=== PATIENT | female | born 1950 | race Caucasian/White ===

== ENCOUNTER → 2017-08-25 | Outpatient (CLI) | payer OTHER | LOC: FIMAGING 09:05 | PROVIDERS: ATTEND Internal Medicine | DX: Z12.31 Encounter for screening mammogram for malignant neoplasm of breast (principal) | CPT/HCPCS: G0202 ==

== ENCOUNTER 2019-02-11 21:33 | Observation (INO) | payer OTHER ==
--- NOTE | 2019-02-11 21:54 | EDPHY ---
H & P Stated Complaint: difficulty swallowing Time Seen by Provider: 02/11/19 21:53 HPI/ROS: HPI CHIEF COMPLAINT: Trouble swallowing. Possible allergic reaction HISTORY OF PRESENT ILLNESS: 68-year-old female, presents emergency room with trouble swallowing. Patient states she was out in the yard all day today removing weeds, she noticed while she was in the yard she began having itching to her face and eyes. She presents to the emergency room stating that she is having trouble swallowing. She is able to swallow, has no trouble breathing upon arrival, but feels like there is something swollen in the throat. No fever. No drooling. No change in phonation. Past Medical History: Cerebral aneurysm with coil, hypertension Past Surgical History: Coil-cerebral Social History: Denies drugs alcohol tobacco. Family History: Noncontributory ROS REVIEW OF SYSTEMS: 10 Systems were reviewed and negative with the exception of the elements mentioned in the history of present illness. Exam Constitutional appears well nontoxic, triage nursing summary reviewed, vital signs reviewed, awake/alert. Eyes normal conjunctivae and sclera, EOMI, PERRLA. HENT posterior pharynx uvula is swollen appears to be uvulitis, no signs of infection, uvula is midline, no signs of [employer] RPA, no stridor, not drooling, no trismus no wheezing, normal inspection, atraumatic, moist mucus membranes, no epistaxis, neck supple/ no meningismus, no raccoon eyes. Respiratory clear to auscultation bilaterally, normal breath sounds, no respiratory distress, no wheezing. Cardiovascular rate normal, regular rhythm, no murmur, no edema, distal pulses normal. Gastrointestinal soft, non-tender, no rebound, no guarding, normal bowel sounds, no distension, no pulsatile mass. Genitourinary no CVA tenderness. Musculoskeletal no midline vertebral tenderness, full range of motion, no calf swelling, no tenderness of extremities, no meningismus, good pulses, neurovascularly intact. Skin pink, warm, & dry, no rash, skin atraumatic. Neurologic awake, alert and oriented x 3, AAOx3, moves all 4 extremities equally, motor intact, sensory intact, CN II-XII intact, normal cerebellar, normal vision, normal speech. Psychiatric normal mood/affect. Heme/Lymph/Immune no lymphadenopathy. Differential Diagnosis: Includes but is not limited to in a particular order allergic reaction, conjunctivitis, viral pharyngitis, strep pharyngitis, uvulitis, tracheitis, epiglottitis Medical Decision Making: Plan for this patient IV establishment, IV fluid bolus , IV Decadron, IV Benadryl IV Pepcid, basic labs and re-evaluate. CT soft tissue neck with IV contrast Re-evaluation: CT scan of the soft tissues of the neck with IV shows no abscess, however does show parapharyngeal swelling, epiglottis on the airway additionally epiglottis looks slightly swollen. Spoke with Dr. Mirza about this. Plan for admission to the ICU for close observation. Patient appears to be having allergic reaction 2356: Spoke with MARIAH Granado superintendent stations for ent, discussed the case. Agrees to consult/see the patient, agrees with current treatment plan. Will admit to ICU for close monitoring 2356: At this time the patient has no stridor, not drooling, has not had any further worsening symptoms. Will closely monitor. 0120AM: Patient here in emergency room having worsening stridor. Patient has been moved from ER room 4 to ER room 2. She has been given a 2nd dose of Decadron, ENT at bedside has scoped her and visualized airway edema that appears to be getting worse. I have set up for emergent intubation as well as emergent cric if need be. Also I have notified anesthesia in ENT. Plan will be to go to the operating room for anesthesia and intubation. If patient becomes unstable or needs emergent airway I will attempt in the patient here in the ER. Critical Care: Total Critical Care Time Spent Managing this Patient: 85 Minutes. This time was spent Exclusively with this patient. This Care was exclusive of procedures. The Organ System/life at risk was airway, respiratory. This Patient was in Critical Condition because respiratory compromise, airway edema, stridor 0144: Patient maintaining her airway, handling secretions, however will be brought to the operating room with anesthesia and ENT for urgent intubation. Dr. Reyes, at bedside with ENT, And Anesthesia. Source: Patient - Personal History Current Tetanus Diphtheria and Acellular Pertussis (TDAP): Yes - Medical/Surgical History Hx Asthma: No Hx Chronic Respiratory Disease: No Hx Diabetes: No Hx Cardiac Disease: No Hx Renal Disease: No Hx Cirrhosis: No Hx Alcoholism: No Hx HIV/AIDS: No Hx Splenectomy or Spleen Trauma: No Other PMH: HTN - Social History Smoking Status: Never smoked Constitutional: Initial Vital Signs Temperature (C) 36.7 C 02/11/19 21:40 Heart Rate 84 02/11/19 21:40 Respiratory Rate 16 02/11/19 21:40 Blood Pressure 193/114 H 02/11/19 21:40 O2 Sat (%) 94 02/11/19 21:40 O2 Delivery Mode Room Air Allergies/Adverse Reactions: codeine Allergy (Verified 07/08/14 18:24) Home Medications: Medication Instructions Recorded Aspirin [Aspirin 81mg (*)] 81 mg PO DAILY 02/12/19 C/E/Zn/Cu/OM3/DHA/EPA/LUT/ZEAX 1 each PO BID 02/12/19 [Preservision Areds 2 Softgel] Leflunomide [Arava 20 mg (*)] 20 mg PO DAILY 02/12/19 Naproxen Sodium [Aleve 220 MG (*)] 220 mg PO DAILY PRN 02/12/19 predniSONE 3 mg PO DAILY 02/12/19 amLODIPine BESYLATE [Norvasc 10 mg 10 mg PO DAILY #30 tab 02/13/19 (*)] predniSONE 40 mg PO AD #9 tablet 02/13/19 predniSONE [Prednisone] 10 mg PO DAILY #30 tablet 02/13/19 Medical Decision Making - Data Points Laboratory Results: Laboratory Results 02/11/19 22:47 02/11/19 22:05 Medications Given: Discontinued Medications Chlorhexidine Gluconate (Peridex) 15 ml PO BID [facility] Stop: 08/11/19 08:59 Last Admin: 02/13/19 08:54 Dose: 15 ml Dexamethasone (Decadron Injection) 10 mg IVP EDNOW ONE Stop: 02/11/19 22:04 Last Admin: 02/11/19 22:10 Dose: 10 mg Dexamethasone (Decadron Injection) 10 mg IVP ONCE ONE Stop: 02/12/19 01:13 Last Admin: 02/12/19 01:15 Dose: 10 mg Dexamethasone (Decadron Injection) 10 mg IVP EDNOW ONE Stop: 02/12/19 01:31 Last Admin: 02/12/19 04:13 Dose: 10 mg Dexamethasone (Decadron Injection) 10 mg IVP Q6HRS [facility] Stop: 08/11/19 05:59 Last Admin: 02/13/19 12:13 Dose: 10 mg Diphenhydramine HCl (Benadryl Injection) 25 mg IVP EDNOW ONE Stop: 02/11/19 22:04 Last Admin: 02/11/19 22:10 Dose: 25 mg Diphenhydramine HCl (Benadryl Injection) 25 mg IVP EDNOW ONE Stop: 02/12/19 00:15 Last Admin: 02/12/19 00:17 Dose: 25 mg Diphenhydramine HCl (Benadryl Injection) 12.5 mg IVP Q6H [facility] Stop: 08/11/19 05:59 Last Admin: 02/13/19 12:18 Dose: 12.5 mg Epinephrine (S-2) 0.5 ml IH EDNOW ONE Stop: 02/12/19 00:15 Last Admin: 02/12/19 00:17 Dose: 0.5 ml Fentanyl (Sublimaze) 25 mcg IV Q2H PRN PRN Reason: Pain, Severe Stop: 02/22/19 11:59 Last Admin: 02/12/19 22:06 Dose: 25 mcg Sodium Chloride (Ns) 1,000 mls @ 0 mls/hr IV EDNOW ONE; Wide Open PRN Reason: Protocol Stop: 02/11/19 22:04 Last Admin: 02/11/19 22:13 Dose: 1,000 mls Famotidine 20 mg/ Sodium (Chloride) 102 mls @ 408 mls/hr IV EDNOW ONE Stop: 02/11/19 22:17 Last Admin: 02/11/19 22:10 Dose: 102 mls Sodium Chloride (Ns) 1,000 mls @ 0 mls/hr IV ONCE ONE PRN Reason: Wide Open Stop: 02/11/19 22:04 Last Admin: 02/11/19 22:10 Dose: 1,000 mls Famotidine/Sodium Chloride (Pepcid 20 Mg (Premix)) 50 mls @ 200 mls/hr IV Q12HRS [facility] Stop: 08/11/19 08:59 Last Admin: 02/13/19 08:52 Dose: 50 mls Fentanyl/Sodium Chloride (Fentanyl 10 Mcg/Ml (Premix)) 100 mls @ 0 mls/hr IV CONT [facility]; Per Protocol PRN Reason: Protocol Stop: 02/22/19 03:07 Last Admin: 02/12/19 04:13 Dose: 100 mls Propofol (Diprivan 10 Mg/Ml (Premix)) 100 mls @ 0 mls/hr IV CONT [facility]; Per Protocol PRN Reason: Protocol Stop: 08/11/19 03:07 Last Admin: 02/13/19 00:05 Dose: 100 mls Lidocaine HCl (Lidocaine Hcl 4% Topical Solution) Confirm Administered Dose 50 ml .ROUTE .STK-MED ONE Stop: 02/12/19 02:00 Last Admin: 02/12/19 06:52 Dose: Not Given Methylprednisolone Sodium Succinate (Solu-Medrol) 125 mg IVP EDNOW ONE Stop: 02/12/19 00:15 Last Admin: 02/12/19 00:17 Dose: 125 mg Oxymetazoline HCl (Afrin Nasal Cherry) Confirm Administered Dose 30 sprays .ROUTE .STK-MED ONE Stop: 02/12/19 02:01 Last Admin: 02/12/19 04:14 Dose: Not Given Departure - Departure Disposition: [facility] Acute Clinical Impression: Allergic reaction Qualifiers: Encounter type: initial encounter Qualified Code(s): T78.40XA - Allergy, unspecified, initial encounter Angioedema Qualifiers: Encounter type: initial encounter Qualified Code(s): T78.3XXA - Angioneurotic edema, initial encounter Condition: Good
[2019-02-11] MEDS ORDERED: FAMOTIDINE 20 MG in NS 100 ML IV ONE (22:03)
[2019-02-11] MEDS ORDERED: NS 1,000 ML IV ONE ×2 (22:03)
[2019-02-11] MEDS ORDERED: DEXAMETHASONE 10 MG/ML VIAL IVP ONE (22:03)
[2019-02-11] MEDS ORDERED: IOPAMIDOL (ISOVUE-300) 100 ML BTL ONE (22:57)
[2019-02-11 23:04] LABS: PLATELET COUNT 67 10^3/uL (150-400)
[2019-02-12] MEDS ORDERED: EPINEPHrine RACEMIC INH 0.5 ML DEYVIAL IH ONE (00:14)
[2019-02-12] MEDS ORDERED: methylPREDNISolone SOD SUCC 125 MG/2 ML VIAL IVP ONE (00:14)
[2019-02-12] MEDS ORDERED: ACETAMINOPHEN 325 MG TAB PO PRN (00:17)
[2019-02-12] MEDS ORDERED: ONDANSETRON 4 MG/2 ML VIAL IVP PRN (00:17)
[2019-02-12] MEDS ORDERED: ONDANSETRON DISINTEGRATING 4 MG TAB PO PRN (00:17)
[2019-02-12] MEDS ORDERED: DEXAMETHASONE 10 MG/ML VIAL IVP ONE ×2 (01:12→01:30)
[2019-02-12] MEDS ORDERED: DEXAMETHASONE 10 MG/ML VIAL ONE (01:13)
--- NOTE | 2019-02-12 01:14 | PDGENHP ---
History and Physical - Chief Complaint Shortness of breath - History of Present Illness 68 yo F w/ hx of SAH and PMR presents with shortness of breath. The patient was working in her garden today pulling weeds. She was also using gasoline as a weed killer and thinks she used about a gallon. In the hours after she began to notice difficulty swallowing and breathing. As a result of this she came in to the ED. In the ED a CT scan demonstrated moderate, diffuse edema in the parapharyngeal soft tissues without significant airway compromise. During a period of observation in the ED, however, her work of breathing continues to increase despite aggressive medical therapy. She will be admitted to the ICU for close airway monitoring. Case discussed with ED physician Dr. Verdin; records reviewed and summarized above. History Information - Allergies/Home Medication List Allergies/Adverse Reactions: codeine Allergy (Verified 07/08/14 18:24) Home Medications: Leflunomide 02/11/19 [Last Taken Unknown] Prednisone 02/11/19 [Last Taken Unknown] I have personally reviewed and updated: family history, medical history - Past Medical History Additional medical history: SAH s/p coiling. PMR - Surgical History Additional surgical history: Coiling of ruptured aneurysm - Family History Positive for: diabetes type II - Social History Smoking Status: Never smoked Review of Systems Review of Systems: ROS: 10pt was reviewed & negative except for what was stated in HPI & below Physical Exam Physical Exam: Temp Pulse Resp BP Pulse Ox 36.7 C 72 20 197/112 H 97 02/11/19 21:40 02/12/19 00:43 02/12/19 00:43 02/12/19 00:43 02/12/19 00:43 O2 (L/minute) 2 Constitutional: appears nourished, uncomfortable Eyes: PERRL, EOMI Ears, Nose, Mouth, Throat: moist mucous membranes, other (Stridor noted) Cardiovascular: regular rate and rhythym, no murmur, rub, or gallop Respiratory: respiratory distress, other (Stridor noted) Gastrointestinal: normoactive bowel sounds, soft, non-tender abdomen Skin: warm, normal color Musculoskeletal: full muscle strength, no muscle tenderness Neurologic: AAOx3, CN II-XII Intact Psychiatric: interacting appropriately, not anxious Lab Data & Imaging Review 02/11/19 22:47 02/11/19 22:05 WBC 5.63 10^3/uL (3.80-9.50) 02/11/19 22:47 RBC 3.74 10^6/uL (4.18-5.33) L 02/11/19 22:47 Hgb 11.7 g/dL (12.6-16.3) L 02/11/19 22:47 Hct 35.8 % (38.0-47.0) L 02/11/19 22:47 MCV 95.7 fL (81.5-99.8) 02/11/19 22:47 MCH 31.3 pg (27.9-34.1) 02/11/19 22:47 MCHC 32.7 g/dL (32.4-36.7) 02/11/19 22:47 RDW 12.9 % (11.5-15.2) 02/11/19 22:47 Plt Count 67 10^3/uL (150-400) L 02/11/19 22:47 MPV 10.9 fL (8.7-11.7) 02/11/19 22:47 Neut % (Auto) 56.0 % (39.3-74.2) 02/11/19 22:47 Lymph % (Auto) 25.6 % (15.0-45.0) 02/11/19 22:47 [place] % (Auto) 15.5 % (4.5-13.0) H 02/11/19 22:47 Eos % (Auto) 1.8 % (0.6-7.6) 02/11/19 22:47 Baso % (Auto) 0.7 % (0.3-1.7) 02/11/19 22:47 Nucleat RBC Rel Count 0.0 % (0.0-0.2) 02/11/19 22:47 Absolute Neuts (auto) 3.16 10^3/uL (1.70-6.50) 02/11/19 22:47 Absolute Lymphs (auto) 1.44 10^3/uL (1.00-3.00) 02/11/19 22:47 Absolute Monos (auto) 0.87 10^3/uL (0.30-0.80) H 02/11/19 22:47 Absolute Eos (auto) 0.10 10^3/uL (0.03-0.40) 02/11/19 22:47 Absolute Basos (auto) 0.04 10^3/uL (0.02-0.10) 02/11/19 22:47 Absolute Nucleated RBC 0.00 10^3/uL (0-0.01) 02/11/19 22:47 Immature Gran % 0.4 % (0.0-1.1) 02/11/19 22:47 Immature Gran # 0.02 10^3/uL (0.00-0.10) 02/11/19 22:47 Sodium 139 mEq/L (135-145) 02/11/19 22:05 Potassium 3.5 mEq/L (3.5-5.2) 02/11/19 22:05 Chloride 110 mEq/L (97-110) 02/11/19 22:05 Carbon Dioxide 21 mEq/l (22-31) L 02/11/19 22:05 Anion Gap 8 mEq/L (6-14) 02/11/19 22:05 BUN 25 mg/dL (7-23) H 02/11/19 22:05 Creatinine 0.6 mg/dL (0.6-1.0) 02/11/19 22:05 Estimated GFR > 60 02/11/19 22:05 Glucose 102 mg/dL (70-100) H 02/11/19 22:05 Calcium 9.6 mg/dL (8.5-10.4) 02/11/19 22:05 Imaging Review: Imaging Impressions Neck CT 02/11/19 22:03 Impression: 1. Moderate diffuse edema in the parapharyngeal soft tissues without significant encroachment upon the airway. This also involves the epiglottis. 2. Metallic density just above the M1 segment on the right related to embolization coils from prior aneurysm. There is associated encephalomalacia right frontal lobe. Findings discussed with Dung Mcgarry MD at 23:31 hour, 02/11/2019. Assessment & Plan Assessment: 68 yo F w/ hx of SAH and PMR presents with airway swelling 2/2 likely allergic reaction. Plan: 1. Upper airway swelling - Patient presents with difficulty breathing after working in her garden. She also inhaled a decent amount of gasoline as she was using this as a weed killer. CT neck demonstrates moderate, diffuse edema in the parapharyngeal soft tissues. Etiology is most likely allergic with possible contribution from direct toxicity of gasoline fumes. - Will ask ENT to directly visualize airway tonight noting progressive symptoms - Observe in ICU - Scheduled dexamethasone, diphenhydramine, and famotidine ordered 2. PMR - She takes prednisone 3 mg daily for this. 3. Hx SAH - S/p coiling Diet - NPO Code - Full Ppx - SCDs Dispo - Admit under observation status
[2019-02-12] MEDS ORDERED: fentaNYL 100 MCG/2 ML INJ ONE ×3 (01:55→01:58)
[2019-02-12] MEDS ORDERED: SUCCINYLCHOLINE CHLORIDE 200 MG/10 ML SYR IVP ONE (01:55)
[2019-02-12] MEDS ORDERED: KETAMINE 200 MG/20 ML VIAL ONE (01:55)
[2019-02-12] MEDS ORDERED: LIDOCAINE HCL 4% TOPICAL SOLN 50ML ONE (01:59)
[2019-02-12] MEDS ORDERED: OXYMETAZOLINE 30 ML NASAL SPRAY ONE (02:00)
[2019-02-12] MEDS ORDERED: PROPOFOL 200 MG/20 ML VIAL ONE ×2 (02:13→02:44)
[2019-02-12] MEDS ORDERED: LABETALOL HCL 5 MG/ML 20 ML MDV ONE (02:37)
[2019-02-12] MEDS ORDERED: PROPOFOL/EMULSION 1,000 MG/100 ML BOTTLE IV ONE (03:03)
[2019-02-12] MEDS ORDERED: fentaNYL/NACL 100 ML IV SCH (03:08)
--- NOTE | 2019-02-12 03:11 | GCON ---
[f rep st] CONSULTATION The patient is a 68-year-old female who presented to the emergency room for difficulty swallowing. T he patient was out pulling weeds in the yard all day and she began to notice a change to her face and eyes and then began with more difficulty with swallowing. Upon the admission to the ER, she was not having any difficulty breathing. I was contacted at 11:45 to state that she was going to the ICU an d was in stable condition. At 12:45, I was contacted to state that she had become stridorous. The p atient had initially received 10 mg Decadron and Pepcid. PAST MEDICAL HISTORY: Cerebral aneurysm with coil and hypertension. SOCIAL HISTORY: Denies drug, alcohol, or tobacco. FAMILY HISTORY: Noncontributory. PHYSICAL EXAMINATION: GENERAL APPEARANCE: Patient is alert and oriented. She is very mildly strido екатерина. HEAD: Atraumatic, normocephalic. NOSE: With anterior crusting bilaterally. OROPHARYNX: Re veals a markedly edematous uvula. Tongue is normal. NECK: Supple with no signs of edema. A fiberoptic laryngoscopy was performed at bedside. Her glottic area was noted to be markedly edemat ous. In bivalving over her vocal cords, the vocal cords themselves were mobile. The patient had abo ut a 5 to 10 mm opening depending on respirations. Dr. Reyes was then notified and brought to the emergency room. Anesthesiology was then contacted t o perform an awake intubation. We were at bedside and ready to perform a tracheostomy if needed. Th e patient was brought up to the OR and intubation was successful. No ENT intervention was needed. ASSESSMENT AND PLAN: Patient is being admitted to the ICU and will be monitored. I will come by mid day to re-evaluate the patient. Once the edema has began to resolve, we can consider pulling the tub e. She will be started on 10 mg Decadron q.6 hours until edema resolves. /[id number]/MODL
[2019-02-12] MEDS: PROPOFOL/EMULSION 100 ML IV SCH ×2 (04:15→10:29)
[2019-02-12] MEDS: DEXAMETHASONE 4 MG/ML VIAL IVP SCH ×4 (05:44→23:57)
[2019-02-12] MEDS ORDERED: DEXAMETHASONE 4 MG/ML VIAL IVP SCH (06:00)
--- NOTE | 2019-02-12 08:35 | PDANEPAE ---
ANE Past Medical History - Cardiovascular History Hx Hypertension: Yes Hx Coronary Artery / Peripheral Vascular Disease: Yes Cardiovascular History Comment: h/o cerebrovascular aneurysm - Pulmonary History Hx Oxygen in Use at Home: No Hx Sleep Apnea: No - Endocrine History Hx Diabetes: No Hypothyroid: No Hyperthyroid: No Obesity: no - Chronic Pain History Chronic Pain: No ANE Review of Systems Review of Systems: ANE Patient History - Allergies Allergies/Adverse Reactions: codeine Allergy (Verified 07/08/14 18:24) - Home Medications Home Medications: Leflunomide 02/11/19 [Last Taken Unknown] Prednisone 02/11/19 [Last Taken Unknown] - Smoking Hx Smoking Status: Never smoked ANE Labs/Vital Signs - Labs Result Diagrams: 02/12/19 07:15 02/12/19 05:40 - Vital Signs Blood Pressure: 129/72 Heart Rate: 57 Respiratory Rate: 11 O2 Sat (%): 96 Height: 157.48 cm Weight: 58.967 kg ANE Physical Exam - Airway Neck exam: decreased ROM Mallampati Score: Class 2 Mouth exam: normal dental/mouth exam - Pulmonary Pulmonary: no respiratory distress - Cardiovascular Cardiovascular: regular rate and rhythym - ASA Status ASA Status: IV, E ANE Anesthesia Plan Anesthesia Plan: general endotracheal anesthesia Specialized Airway: video laryngoscope, fiberoptic intubation, nasal intubation Urgent/Emergent Case: George chung completed preop but documented later for safe timely pt care
--- NOTE | 2019-02-12 08:36 | POSTANESTH ---
Post Anesthetic Evaluation Cardiovascular Status: Normal, Stable Respiratory Status: Normal, Stable Level of Consciousness/Mental Status: Mildly Sleepy, Arousable Pain Control: Adequate, Prn Tx Ordered Nausea/Vomiting Control: Adequate, Prn Tx Ordered Complications Possibly Related to Anesthesia: None Noted (on mechanical ventilation, sedated, reacts appropriately to stimulation)
[2019-02-12] MEDS: FAMOTIDINE 20 MG/NACL 50 ML IV SCH ×2 (08:38→20:58)
[2019-02-12] MEDS: CHLORHEXIDINE GLUCONATE 15 ML UDL PO SCH ×2 (08:46→20:58)
[2019-02-12] MEDS ORDERED: FAMOTIDINE 20 MG/NACL 50 ML IV SCH (09:00)
--- NOTE | 2019-02-12 12:05 | SOAPPROG ---
SOAP Progress Note Assessment/Plan: Patient doing well s/p intubation for angioedema reaction. She complains that tube is rubbing on palate. fiberoptic scope passed through left nostril. still edematous glottic, a lot of secretions plan- leave in til tomorrow. discussed case with Amy. I will come by to scope tomorrow. Plan: 02/12/19 12:02 Objective: Vital Signs Temp Pulse Resp BP Pulse Ox 36.8 C 64 12 130/76 H 96 02/12/19 10:00 02/12/19 10:00 02/12/19 10:00 02/12/19 10:00 02/12/19 10:00 Laboratory Results 02/12/19 07:15 02/12/19 05:40 02/11/19 02/12/19 02/13/19 05:59 05:59 05:59 Intake Total 91 Balance 91 - Pending Discharge Pending Discharge Within 48 Hours: Yes Pending Discharge Date: 02/14/19 Pending Discharge Time: 11:00 ICD10 Worksheet Patient Problems: Problems Problem Status Onset Allergic reaction Acute Angioedema Acute Aneurysm of posterior communicating artery Acute Hypertension Acute Subarachnoid hemorrhage due to ruptured aneurysm Acute
[2019-02-12] MEDS: fentaNYL 100 MCG/2 ML INJ IV PRN ×3 (12:46→22:06)
--- NOTE | 2019-02-12 16:07 | GCON ---
[f rep st] CONSULTATION CRITICAL CARE CONSULTATION DATE OF CONSULTATION: 02/12/2019 HISTORY OF PRESENT ILLNESS: This patient is a 68-year-old female without much allergy history, who w as doing quite a bit of yard work yesterday and developed substantial itching and watery eyes, but no rash, and some difficulty swallowing. She subsequently came to the emergency department where a CT scan showed only pharyngeal edema. She was quite stable when she arrived, but deteriorated about 1:3 0 a.m. with significant stridor. She was subsequently brought into the OR under ENT guidance, where she underwent laryngoscopy and oral intubation by Anesthesia. The 1st attempt was through the nose, which they were unable to pass an ET tube through. A 2nd attempt was oral, and that worked well. Ac cording to ENT, they only had edema without friable bloody tissue. There was no rash noted throughou t. During her ED admission, she received dexamethasone, Benadryl, Pepcid, and epinephrine, though th e sequence is not exactly clear. She has been on dexamethasone overnight and the ventilator, and has been otherwise fairly stable. This morning, she said she does have a sore throat. Has a small endo tracheal tube in place with no air leak. She otherwise had no other issues. PAST MEDICAL HISTORY: Includes a subarachnoid hemorrhage in 2013, thought to be due to cerebral aneu rysm, which was coiled at the time. She also has polymyalgia rheumatica, and she was on higher doses of steroids back in October, but has been slowly tapering them down, and is down to 1 to 3 mg daily. She also has a history of hypertension and a history of refusing vaccines at least in 2013. PAST SURGICAL HISTORY: Includes tonsillectomy, right knee surgery, and the coiling as described abov dona. OUTPATIENT MEDICATIONS: Include lisinopril, aspirin, prednisone. ALLERGIES: She also is allergic to codeine. CURRENT MEDICATIONS: Include dexamethasone, Tylenol, Pepcid, p.r.n. fentanyl, propofol on a ventilat or. PHYSICAL EXAMINATION: VITAL SIGNS: At the time of my exam, she had blood pressure 129/72, heart rat e of 60, respirations of 12, oxygen saturation 97% on the ventilator. GENERAL: She was awake, alert , suctioning her oral cavity on her own, in no apparent distress. HEENT: Pupils equally round and re active to light. Conjunctivae were noninjected and nonicteric. Mucous membranes were moist. Her to ngue appeared to be of normal size. NECK: Supple without adenopathy or jugular vein distention. ECHO NGS: Breath sounds were clear to auscultation bilaterally without wheezes, rubs, or rales. HEART: Regular rate and rhythm without murmurs, rubs, gallops. ABDOMEN: Soft, nontender, nondistended, wit hout hepatosplenomegaly. EXTREMITIES: Show no clubbing, cyanosis, or edema. NEUROLOGIC: Nonfocal, including cranial nerves, deep tendon reflexes. SKIN: Warm and dry without evidence of rash. OBJECTIVE DATA: Includes the neck CT as described above. Her white count was 5.6 on arrival, hemato crit 35.8, platelets of 67, which on repeat were 52 for uncertain reasons. Her basic metabolic panel was fairly unremarkable. Her bicarb was 21, anion gap was 8, glucose of 102. ASSESSMENT AND PLAN: 1. Angioedema of uncertain etiology. Certainly, the inciting event seems to be allergic in nature, but it is unclear to me whether this is mast cell mediated or not. She did not have substantial eosi nophilia on arrival. In any case, she has been treated with steroids and appropriate other medicatio ns. I agree with leaving the dexamethasone on for now and I would leave her intubated today. ENT di d another look today and said that she was still edematous. They will take another look tomorrow bef ore we proceed with any extubation. She can go on as minimal support as she can tolerate in terms of the ventilator, but I see no evidence of pneumonia. It would also be unusual for her to have infect ion, and she has had direct laryngoscopy that did not show evidence of a tumor. In any case, she is otherwise stable. 2. Thrombocytopenia. It is not clear to me the etiology. It may be her medications. We will revie w those and discuss that with her family. A total of 45 minutes of critical care time was required for this patient. /[id number]/MODL
--- NOTE | 2019-02-12 18:15 | HOSPPROG ---
Hospitalist Progress Note Assessment/Plan: Critical care ICU note I spent greater than 45 min bedside today in ICU in addition to the time spent earlier today by Dr. 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 I had long discussions with Dr.Tim Maguire and Dr. Bales. Etiology of her acute illness is unclear. There is a question of the exposure to gasoline fumes and this seems unlikely but could not entirely rule out some irritant or toxic effect from that. The localized nature of the swelling along with the friable tissue is less consistent with an angioedema though she does take an TASHIA-inhibitor at home. She has no prior history of angioedema type episodes. There is no definite sign of infection at this time no fever or high white blood cell count and atypical appearance of the tissues for that. No abscess on CT PLANS: * Continue or tracheal intubation * Continue airway pressure assistance and monitor her ventilation and oxygenation carefully adjust ventilator support as needed * She has been able to stay awake throughout the day so far and will allow that as long she is comfortable enough * Continue steroids and Benadryl * Sedation as needed for comfort or ventilation which so far has been minimal SUBJECTIVE: She is able to answer questions and answers questions by writing on a board She has some pain at the throat from her swelling and her 2 otherwise feels okay , feels like she is getting her air well enough No nausea No shivering No pains elsewhere OBJECTIVE Vitals reviewed: Mild hypertension intermittently otherwise stable vitals without fever [employer], my review: Sinus Exam: Lying in bed with orotracheal tube in good position and well secured; CPAP from ventilator with 40% oxygen and oxygenating well alert oriented skin warm dry color ok; no rash or wheels or hives resps not labored lungs diminished but clear BSs heart regular abd soft nondistended nontender, bowel sounds present limbs warm, no edema iv site ok Lab data: Thrombocytopenia which is new for her, platelets [id number] Some anemia which is chronic for her currently normocytic Stable renal function and electrolytes Objective: Vital Signs Temp Pulse Resp BP Pulse Ox 36.8 C 59 L 13 142/77 H 97 02/12/19 10:00 02/12/19 16:25 02/12/19 16:25 02/12/19 16:00 02/12/19 16:25 Laboratory Results 02/12/19 07:15 02/12/19 05:40 02/11/19 02/12/19 02/13/19 06:59 06:59 06:59 Intake Total 91 535 Output Total 1150 Balance 91 617 ICD10 Worksheet Patient Problems: Problems Problem Status Onset Allergic reaction Acute Angioedema Acute Aneurysm of posterior communicating artery Acute Hypertension Acute Subarachnoid hemorrhage due to ruptured aneurysm Acute
[2019-02-12 18:51] LABS: INR 1.03 (0.83-1.16); PROTIME(PATIENT) 13.1 SEC (12.0-15.0)
[2019-02-13] MEDS: PROPOFOL/EMULSION 100 ML IV SCH (00:05)
[2019-02-13] MEDS: DEXAMETHASONE 4 MG/ML VIAL IVP SCH ×2 (05:43→12:13)
[2019-02-13] MEDS: FAMOTIDINE 20 MG/NACL 50 ML IV SCH (08:52)
[2019-02-13] MEDS: CHLORHEXIDINE GLUCONATE 15 ML UDL PO SCH (08:54)
--- NOTE | 2019-02-13 11:20 | SOAPPROG ---
SOAP Progress Note Assessment/Plan: Patient doing well s/p intubation for angioedema reaction. stable fiberoptic scope passed through left nostril. edema resolving , space around tube. a lot of secretions plan- Pt edema is resolving. I spoke with Dr. Maguire and Dr. Carlson. I feel she is safe to extubate. She should be discharged home with Pred 40mg x 3 days then taper back down to her normal dose for PMR. Plan: 02/12/19 12:02 02/13/19 11:17 Objective: Vital Signs Temp Pulse Resp BP Pulse Ox 36.5 C 70 13 151/91 H 98 02/13/19 08:00 02/13/19 08:00 02/13/19 08:00 02/13/19 08:00 02/13/19 08:00 Laboratory Results 02/13/19 09:10 02/13/19 05:50 02/12/19 02/13/19 02/14/19 05:59 05:59 05:59 Intake Total 91 1273 Output Total 2150 Balance 91 -877 PT 13.1 SEC (12.0-15.0) 02/12/19 18:30 INR 1.03 (0.83-1.16) 02/12/19 18:30 - Pending Discharge Pending Discharge Within 24 Hours: Yes Pending Discharge Date: 02/14/19 Pending Discharge Time: 11:00 ICD10 Worksheet Patient Problems: Problems Problem Status Onset Allergic reaction Acute Angioedema Acute Aneurysm of posterior communicating artery Acute Hypertension Acute Subarachnoid hemorrhage due to ruptured aneurysm Acute
--- NOTE | 2019-02-13 12:18 | PDINTPN ---
[employer] Clerk Progress Note Assessment/Plan: 68 F without known history of seasonal allergies but on TASHIA for years, admitted 02/11 with sudden onset itching, watery eyes, and dysphagia which progressed to stridor in the ED after dex, pepcid, benadryl. There was no rash or urticaria reported, and no ingestion. She had been working in her yard weeding, using gasoline to kill the weeds while pulling them. A neck CT showed posterior pharyngeal edema without tumor. There were no signs of infection. She was taken to the OR for emergent intubation with ENT backup where she was orally intubated with a 6.5 ETT after about an hour (failed nasal attempt 2/2 edematous uvula). No other complications * Angioedema of the posterior pharynx of uncertain etiology. Not sure gasoline or TASHIA is driving, but would change to ARB or other alternative in any case. ENT looked 02/12 and 02/13 and reports secretions but clear visualization of space between cords and ETT. Leak test today revealed audible leak (though not measurable). Plan to extubate now with possible dc home. Agree with steroids/ taper as outlined by ENT. * HTN- as above * PMR- she is on chronic low dose prednisone (3 mg) which she will eventually taper back to. Subjective: stable overnight on vent. Anxious for extubation Objective: Vital Signs Temp Pulse Resp BP Pulse Ox 37.2 C 76 14 152/88 H 94 02/13/19 12:00 02/13/19 12:00 02/13/19 12:00 02/13/19 12:00 02/13/19 12:00 Laboratory Results 02/13/19 09:10 02/13/19 05:50 02/12/19 02/13/19 02/14/19 05:59 05:59 05:59 Intake Total 91 1273 341.9 Output Total 2150 400 Balance 91 -877 -58.1 PT 13.1 SEC (12.0-15.0) 02/12/19 18:30 INR 1.03 (0.83-1.16) 02/12/19 18:30 Physical Exam - Physical Exam General Appearance: alert, no apparent distress, thin EENT: ET tube Neck: supple Respiratory: lungs clear, normal breath sounds, No respiratory distress, No accessory muscle use Cardiac/Chest: regular rate, rhythm, No edema, No JVD Abdomen: non-tender, soft, No distended Skin: normal color, warm/dry, No cyanosis Lymphatic: no adenopathy Extremities: No pedal edema Neuro/Psych: alert, normal mood/affect, oriented x 3 ICD10 Worksheet Patient Problems: Problems Problem Status Onset Allergic reaction Acute Angioedema Acute Aneurysm of posterior communicating artery Acute Hypertension Acute Subarachnoid hemorrhage due to ruptured aneurysm Acute
[2019-02-13 14:51] VITALS: BP 144/77
--- NOTE | 2019-02-13 15:05 | PDDCSUM ---
Discharge Summary Discharge Summary: DISCHARGE DIAGNOSES: * Acute pharyngeal and laryngeal airway obstruction requiring intubation for airway protection * Acute hypoxemic respiratory failure due to above * Chronic hypertension * History of polymyalgia rheumatica on leflunomide and recently tapered down to 3 mg daily prednisone CONSULTANTS: [facility] Dr. Germán Randhawa of anesthesiology PROCEDURES: Oral endotracheal intubation Mechanical ventilation CT scan soft tissue of neck HOSPITAL COURSE SUMMARY: This patient was doing well until the day of her admission when she started to feel some itching in her eyelids and tightness in her throat while she was doing some gardening. The tightening in her throat continued and she started to have some stridor sound. Her called for help and was brought to the emergency room. While in the emergency room she developed severe stridor and was taken to the operating room where she had diffuse edema of pharyngeal tissues with very tenuous airway. She was intubated. She was started on steroid therapy. There were no other acute medical issues identified. There is no sign of infection, there are no hives or other signs of definite allergic reaction, she was not hypotensive, she did not have abdominal or other specific symptoms to the strongly suggest angioedema. The tongue was not swollen. The in the end the cause of this syndrome is uncertain but she did respond to steroid therapy. Notably the patient does take lisinopril. She has never had an episode like this or any allergic reactions or angioedema reactions in the past. The only other abnormality was some thrombocytopenia which appears due to platelet clumping and has been noted before for her. By the day of discharge the patient's airway tissues had become much less edematous and there was an air leak around her endotracheal tube. She was extubated and has done well since then, ambulating in the hallway in eating without difficulty. She is felt to be stable for discharge to home at this time. It is recommended she go home on prednisone 40 mg daily for 3 days and then taper down after that. Notably the patient has pulmonology rheumatica, and after a long course of 20 mg per day prednisone, she has gradually taper down over period of months to 3 mg daily. At this point she will need help managing her taper. As it turns out she has an appoint with her neck band setter in 2 days. She will follow up with her neck band setter to direct the tapering of her prednisone but hopefully she can fairly quickly get back down to low doses. Is also recommended that she stop her lisinopril which she takes for blood pressure and not use Shalom inhibitors in the future. At this point where changing to calcium channel siobhan for blood pressure PENDING TEST RESULTS: None MEDICATION CHANGES: Discontinuation of lisinopril, and she should stay off Shalom inhibitors. She is starting on amlodipine for blood pressure now Addition of prednisone initially 40 mg three times daily x3 days to be tapered slowly down under the management of her neck band setter FOLLOW-UP PLAN: She is an appoint with her neck band setter in 2 days She will make an appointment at the illness or clinic in 7-10 days She understands that she should return promptly to the ER for any difficulty breathing Greater than 35 minutes bedside and care coordination time today
--- NOTE | 2019-02-13 15:33 | PDDCSUM ---
Discharge Summary Discharge Summary: DISCHARGE DIAGNOSES: * Acute pharyngeal and laryngeal airway obstruction requiring intubation for airway protection - suspect possible angioedema but cause uncertain * Acute hypoxemic respiratory failure due to above * Chronic hypertension * History of polymyalgia rheumatica on leflunomide and recently tapered down to 3 mg daily prednisone CONSULTANTS: [facility] Dr. Germán Randhawa of anesthesiology PROCEDURES: Oral endotracheal intubation Mechanical ventilation CT scan soft tissue of neck HOSPITAL COURSE SUMMARY: This patient was doing well until the day of her admission when she started to feel some itching in her eyelids and tightness in her throat while she was doing some gardening. The tightening in her throat continued and she started to have some stridor sound. Her called for help and was brought to the emergency room. While in the emergency room she developed severe stridor and was taken to the operating room where she had diffuse edema of pharyngeal tissues with very tenuous airway. There were not laryngoscopic signs of infection, and she had no fever or wbc elevation. She was intubated. She was started on steroid therapy with IV dexamethasone. There were no other acute medical issues identified. There is no sign of infection, there are no hives or other signs of definite allergic reaction, she was not hypotensive, she did not have abdominal or other specific symptoms to the strongly suggest angioedema. The tongue was not swollen. The in the end the cause of this syndrome is uncertain but she did respond to steroid therapy. Notably the patient does take lisinopril. She has never had an episode like this or any allergic reactions or angioedema reactions in the past. The only other abnormality was some thrombocytopenia which appears due to platelet clumping and has been noted before for her. By the day of discharge the patient's airway tissues had become much less edematous and there was an air leak around her endotracheal tube. She was extubated and has done well since then, ambulating in the hallway in eating without difficulty. She is felt to be stable for discharge to home at this time. It is recommended she go home on prednisone 40 mg daily for 3 days and then taper down after that. Notably the patient has pulmonology rheumatica, and after a long course of 20 mg per day prednisone, she has gradually taper down over period of months to 3 mg daily. At this point she will need help managing her taper. As it turns out she has an appoint with her central melt specialist in 2 days. She will follow up with her central melt specialist to direct the tapering of her prednisone but hopefully she can fairly quickly get back down to low doses. Is also recommended that she stop her lisinopril which she takes for blood pressure and not use Shalom inhibitors in the future. At this point where changing to calcium channel siobhan for blood pressure PENDING TEST RESULTS: None MEDICATION CHANGES: Discontinuation of lisinopril, and she should stay off Shalom inhibitors. She is starting on amlodipine for blood pressure now Addition of prednisone initially 40 mg three times daily x3 days to be tapered slowly down under the management of her central melt specialist FOLLOW-UP PLAN: She is an appoint with her central melt specialist in 2 days She will make an appointment at the illness or clinic in 7-10 days She understands that she should return promptly to the ER for any difficulty breathing Greater than 35 minutes bedside and care coordination time today
== END 2019-02-13 15:50 | disposition home or self-care (01) ==
LOC: INTOOBSV 02-12 00:15 → F2N 02-12 02:49
PROVIDERS: ADMIT Student in an Organized Health Care Education/Training Program; ATTEND Student in an Organized Health Care Education/Training Program
PROC: 0CJS8ZZ Inspection of Larynx, Via Natural or Artificial Opening Endoscopic (ICD-10-PCS; principal; 2019-02-11)
PROC: 0BH17EZ Insertion of Endotracheal Airway into Trachea, Via Natural or Artificial Opening (ICD-10-PCS; principal; 2019-02-11)
DX: T78.3XXA Angioneurotic edema, initial encounter (principal); J38.4 Edema of larynx; J96.01 Acute respiratory failure with hypoxia; I10 Essential (primary) hypertension; M35.3 Polymyalgia rheumatica; E11.9 Type 2 diabetes mellitus without complications; D69.6 Thrombocytopenia, unspecified
CPT/HCPCS: 31500; 31575; 70491; 96361; 96374; 96375; 96376; 97161; 97166; 99291; 99292; G0378; J0330; J1100; J1200; J2704; J2930; J3010; Q9967; 86664-90; 86665-90